=== PATIENT | male | born 1965 | race Caucasian/White ===

== ENCOUNTER → 2021-03-27 10:16 | Outpatient (CLI) | payer OTHER, MEDICAID, SELFPAY ==
[2021-03-27 11:50] LABS: Alanine Aminotransferase 20 IU/L (<50); Albumin 4.5 g/dL (3.5-5.0); Albumin Globulin Ratio 1.5 (1.0-2.8); Alkaline Phosphatase 56 U/L (38-126); Aspartate Aminotransferase 23 IU/L (17-59); BUN Creatinine Ratio 32.6 (6-22); Bilirubin Total 0.2 mg/dL (0.2-1.3); Blood Urea Nitrogen 14 mg/dL (9-20); Carbon Dioxide 27 mmol/L (22-32); Chloride 101 mmol/L (98-107); Cholesterol 282 mg/dL (140-199); Estimated Glomerular Filt Rate > 60.0 mL/min (>60); Glucose 246 mg/dL (70-100); HDL Cholesterol 39 mg/dL (40-60); HEMOLYSIS < 15 (0-50); Potassium 4.3 mmol/L (3.4-5.1); Sodium 137 mmol/L (137-145); Total Protein 7.5 g/dL (6.3-8.2); Triglycerides 462 mg/dL (35-150)
[2021-03-27 12:00] LABS: Hemoglobin A1C% w Est Avg Glu 8.3 % (4.0-6.0)
[2021-03-27 12:05] LABS: Vitamin D 25 Hydroxy (D3) 53.7 ng/mL (30.0-100.0)
[2021-03-27 12:18] LABS: Prostate Specific Antigen Scrn 1.16 ng/mL (0.1-4.0)
== END ==
PROVIDERS: PCP Student in an Organized Health Care Education/Training Program; Referring Provider Student in an Organized Health Care Education/Training Program; Visit Provider Student in an Organized Health Care Education/Training Program
DX: E11.9 Type 2 diabetes mellitus without complications (principal); E11.69 Type 2 diabetes mellitus with other specified complication; E78.5 Hyperlipidemia, unspecified; Z12.5 Encounter for screening for malignant neoplasm of prostate; E55.9 Vitamin D deficiency, unspecified
CPT/HCPCS: 36415; 80053; 80061; 82306; 83036; G0103

== ENCOUNTER → 2021-07-15 16:24 | Outpatient (CLI) | payer OTHER, MEDICAID, SELFPAY ==
[2021-07-15 17:48] LABS: Hemoglobin A1C% w Est Avg Glu 6.3 % (4.0-6.0)
[2021-07-15 17:58] LABS: Cholesterol 276 mg/dL (140-199); HDL Cholesterol 42 mg/dL (40-60); LDL Cholesterol Calculated 178 mg/dL (<100); Triglycerides 280 mg/dL (35-150)
== END ==
PROVIDERS: PCP Student in an Organized Health Care Education/Training Program; Referring Provider Student in an Organized Health Care Education/Training Program; Visit Provider Student in an Organized Health Care Education/Training Program
DX: E11.65 Type 2 diabetes mellitus with hyperglycemia (principal); E78.5 Hyperlipidemia, unspecified
CPT/HCPCS: 36415; 80061; 83036

== ENCOUNTER 2021-07-24 10:04 | Outpatient (RCR) | payer OTHER, MEDICAID, SELFPAY ==
--- NOTE | 2021-07-24 12:46 | PT.OIE ---
Current Diagnoses Muscle wasting and atrophy, not elsewhere classified, multiple sites (07/24/21) Muscle weakness (generalized) (07/24/21) Weakness (07/24/21) Past Medical History (Last Updated 03/30/21 @ 11:42 by Forrest Horne MD) ALS (amyotrophic lateral sclerosis) Asthma Chronic back pain Diabetes mellitus History of neck surgery Hyperlipidemia associated with type 2 diabetes mellitus Onychomycosis Peripheral neuropathy Past Surgical History (Last Updated 03/27/21 @ 22:01 by Freida Stanford) Anesthesia History of neck surgery Visit Care Team Role Provider Type Forrest Horne MD Family Provider Physician Primary Care Provider Specialty: Internal Medicine Address: [address] [place] [address], [address], [address] Email: [email or web address] Gisele Cruz MD Attending Provider Non-Staff Referring Provider Specialty: Neurology Address: [address] [place] [address], [id number] Email: Physical Therapy Initial Evaluation PT-OP-A Visit Information Start: 07/24/21 12:15 Freq: Status: Active Protocol: Document 07/24/21 10:30 HH (Rec: 07/24/21 12:44 HH [email or web address]) Out-Patient Physical Therapy Visit Information Visit Information Visit Type Initial Evaluation Visit Start Time 10:30 Visit Stop Time 11:15 Total Visit Minutes 45 Visit Number 1/9 Number of TAXATION INSPECTOR Visits 0 Evaluation Information Evaluation Date 07/24/21 Precautions Precautions ALS DMII avoid laying in supine d/t difficulty in breathing depression PT-OP-B Current Condition Start: 07/24/21 12:15 Freq: Status: Active Protocol: Document 07/24/21 10:30 HH (Rec: 07/24/21 12:44 HH [email or web address]) Current Condition History of Current Condition Onset Date since 2013 Current Complaints ALS, generalized pain, decreased strength and balance History of Current Condition Willam is a 55yo gentleman here with his CG to improve his overall strength and mobility secondary to his recent dx of ALS from last year. He stated symptoms started from distal part UEs since 2013 but was mis-diagnosed with carpal tunnel syndrome and neck related injury. He had cervical disc replacement before and carpel tunnel release. He also had a low back and ulnar relocation surgery. However, he has lost full function of his UEs now and only able to perform shoulder shrugs. He notices his feet is getting weak and less mobile now which affects his balance and gait. He has one CG (2 CGs take turn) x5 hrs per day to assist him for ADLs including bathing, feed, cooking, house cleaning, dressing. Pt mostly lay in bed around 22 hours a day and walks occasionally within the house. Current Functional Impairments (Reported) Functional Limitations- ADL's He has one CG (2 CGs take turn ) x5 hrs per day to assist him for ADLs including bathing, feed, cooking, house cleaning, dressing. Pt mostly lay in bed around 22 hours a day and walks occasionally within the house. Functional Limitations- Other pt sleeps in a reclined bed. He does have difficulty from supine to sit getting up from chair is also difficulty to him. Personal Factors Other Personal Factors That May Effect ALS Therapy/Recovery DMII depression PT-OP-C Subjective Start: 07/24/21 12:15 Freq: Status: Active Protocol: Document 07/24/21 10:30 HH (Rec: 07/24/21 12:44 [email or web address]) OP-PT Pain Assessment Location generalized pain Intensity 5 Scale Used Numeric (0 - 10) Description Chronic Other Pain Aggravating Factors persistent pain PT-OP-D Balance Start: 07/24/21 12:15 Freq: Status: Active Protocol: Document 07/24/21 10:30 HH (Rec: 07/24/21 12:44 [email or web address]) OP-PT Balance Assessment Sitting Balance Static Sitting Balance Ability Good Standing Balance Static Standing Balance Ability Fair Dynamic Standing Balance Ability Fair Madrid Fall Scale Copyright Permission PT-OP-E Functional Tests Start: 07/24/21 12:15 Freq: Status: Active Protocol: Document 07/24/21 10:30 HH (Rec: 07/24/21 12:46 [email or web address]) Functional Tests 30 Second Sit to Stand Test Score 4 Comments 21 inch firm surface, significant anterior trunk lean for rocking, Timed Up and Go (TUG) Score 22 Comments 2 trial, 21-23s, 1PA to stand up from 20 inch chair. TUG Impairment Rating 100% Impaired (Score 20) PT-OP-G Mobility & Gait Start: 07/24/21 12:15 Freq: Status: Active Protocol: Document 07/24/21 10:30 HH (Rec: 07/24/21 12:44 HH [email or web address]) OP Mobility Evaluation Bed Mobility Supine to and from Sit unable from full supine use of trunk rock and leg swing to get up from inclined position Transfers Sit to Stand lack of ankle DF to allow anterior translation of knees use of anterior trunk lean to gain momentum able to get up from chair >21 inches firm surface OP Gait Assessment Comments Gait Comments heel walker and high steppage gait. no reciprocal armswings. Stair Climbing Evaluation Comments Stair Climbing Comments pt has a ramp at home PT-OP-H Neuro Start: 07/24/21 12:15 Freq: Status: Active Protocol: Document 07/24/21 10:30 HH (Rec: 07/24/21 12:44 HH [email or web address]) Sensation Evaluation Gross Sensation Gross Sensation WNL Comments Summary Comments peripheral neuropathy on feet bilaterally PT-OP-K Range of Motion Start: 07/24/21 12:15 Freq: Status: Active Protocol: Document 07/24/21 10:30 HH (Rec: 07/24/21 12:44 HH [email or web address]) Cervical Spine Range of Motion Cervical Spine Active Degrees Testing Position Sitting Flexion 22 Extension 18 Rotation Left 30 Rotation Right 33 Hip Goniometric Range of Motion Hip Right Active Hip ROM WFL Yes Left Active Hip ROM WFL Yes Knee Goniometric Range of Motion Knee Left Knee ROM WFL Yes Right Knee ROM WFL Yes Ankle and Foot Goniometric Range of Motion Ankle and Foot Left Active Ankle/Foot ROM WFL No Testing Position Supine Comments resting position =15 degrees PF, active DF = 13 degrees in pf Right Active Ankle/Foot ROM WFL No Testing Position Supine Comments resting position =18 degrees PF, active DF = 15 degrees in pf PT-OP-M Strength Start: 07/24/21 12:15 Freq: Status: Active Protocol: Document 07/24/21 10:30 HH (Rec: 07/24/21 12:44 HH [email or web address]) Trunk Strength Trunk Manual Muscle Testing Testing Position Sitting Flexion 4- Good- Shoulder Strength Shoulder Manual Muscle Testing Right Flexion 0 Zero Extension 0 Zero Abduction (C5) 1 Trace Adduction 0 Zero Comments shoulder elevation 4+/5 Left Flexion 0 Zero Extension 0 Zero Abduction (C5) 0 Zero Adduction 0 Zero Comments shoulder elevation 4+/5 Elbow/Forearm Strength Elbow and Forearm Manual Muscle Testing Right Flexion (C6) 2- Poor- Extension (C7) 0 Zero Pronation 0 Zero Supination 0 Zero Left Flexion (C6) 0 Zero Extension (C7) 0 Zero Pronation 0 Zero Supination 0 Zero Wrist Strength Wrist Manual Muscle Testing Right Flexion (C7) 0 Zero Extension (C6) 0 Zero Ulnar Deviation 0 Zero Radial Deviation 0 Zero Left Flexion (C7) 0 Zero Extension (C6) 0 Zero Ulnar Deviation 0 Zero Radial Deviation 0 Zero Hip Strength Hip Manual Muscle Testing Right Flexion (L2) 3+ Fair+ Extension (S1) 3+ Fair+ Abduction 3+ Fair+ Adduction 3+ Fair+ Left Flexion (L2) 4- Good- Extension (S1) 4- Good- Abduction 4- Good- Adduction 4- Good- Knee Strength Knee Manual Muscle Testing Right Flexion (S2) 3+ Fair+ Extension (L3) 3+ Fair+ Left Flexion (S2) 4- Good- Extension (L3) 4- Good- Ankle/Foot Strength Ankle and Foot Manual Muscle Testing Right Dorsiflexion (L4) 3- Fair- Plantarflexion (S1) 3+ Fair+ Left Dorsiflexion (L4) 3 Fair Plantarflexion (S1) 3+ Fair+ PT-OP-Q Treatments Start: 07/24/21 12:15 Freq: Status: Active Protocol: Document 07/24/21 10:30 (Rec: 07/24/21 12:44 [email or web address]) Therapeutic Exercises Supine Exercises calf stretch Supine Exercise Name have CG to perform for PT Side bilateral Reps/Minutes 20s x 5 Comments for HEP PT-OP-T Assessment and Plan Start: 07/24/21 12:15 Freq: Status: Active Protocol: Document 07/24/21 10:30 HH (Rec: 07/24/21 12:44 [email or web address]) Physical Therapy Assessment Rehab Potential Rehabilitation Potential Fair Evaluation Complexity Number of Personal Factors/Comorbidities 3 or More Number of Body Systems Impaired 4 or More Clinical Presentation at Evaluation Stable Impairments Impairments Activity Tolerance,Balance, Functional Activities, Functional Mobility,Gait,Pain, Posture,ROM,Soft Tissue Mobility,Strength,Tone, Transfers Goals TUG Impairment TUG= 22s from 20 inch chair Short Term Goal (STG) pt will show improved LE strength and endurance to be able to complete TUG <20 s safely without assistance STG Duration 5 weeks Straightedge Machine Operator Helper Goal (LTG) pt will show improved LE strength and endurance to be able to complete TUG <18 s safely without assistance LTG Duration 10 weeks STS Impairment pt is very deconditioned and lack of strength Short Term Goal (STG) pt will show improve LE strength to complete 5 STS from 21 inch table with decreased anterior trunk lean STG Duration 5 weeks Straightedge Machine Operator Helper Goal (LTG) pt will show improve LE strength to complete 6 STS from 21 inch table with decreased anterior trunk lean, therefore, he can stand up from regular chair. LTG Duration 10 weeks ROM Impairment lack of ankle ROM Short Term Goal (STG) pt will show improved PROM of ankle DF to 12 degrees bilateraly STG Duration 5 weeks Straightedge Machine Operator Helper Goal (LTG) pt will show improved PROM of ankle DF to 10 degrees bilateraly to improve ability to get up from chair LTG Duration 10 weeks Assessment Summary Assessment Willam is a 55 yo gentleman here to improve his mobility and strength d/t his ALS. Upon assessment, he loss complete function for both UE with ( significant muscle atrophy). He has very limited strength and ankle DF bilaterally but WFL for both knees and hips. His 30s STS= 4 times and TUG= 22s which are way below average. His gait = heel walker d/t foot drop which affect his balance (in addition to ALS and DM II). I believe pt can benefit from skilled PT to improve his ankle flexiblity which allows him to have better anterior translation during sit to stand, and overall core strength/ LE strength to improve his bed mobility and gait. In the mean time, providing patient education on energy conservation techniques is also important for him to avoid exacerbating his symptoms/ progression. Physical Therapy Plan Frequency and Duration Frequency of Treatment 2x/Week Duration of Treatment 10 weeks Plan of Care Start Date 07/24/21 Plan of Care End Date 10/07/21 Therapeutic Interventions Therapeutic Interventions Balance Training,Gait Training Next Visit Focus/Plan Next Note Type Treatment Note Next Visit Plan AVOID laying in supine d/t difficulty in supine calf stretch biking as tolerated core stability ex, ball leg curl, seated rotation resisted trunk flexion, extension
--- NOTE | 2021-07-24 12:46 | PT.OPPOC ---
Physical, Occupational & Speech Therapy At [facility] Current Diagnoses Muscle wasting and atrophy, not elsewhere classified, multiple sites (07/24/21) Muscle weakness (generalized) (07/24/21) Weakness (07/24/21) Visit Care Team Role Provider Type Forrest Horne MD Family Provider Physician Primary Care Provider Specialty: Internal Medicine Address: [address] [place] [address], [facility] [place] [address], [place], [address] Email: [email or web address] Gisele Cruz MD Attending Provider Non-Staff Referring Provider Specialty: Neurology Address: [address] [place] [address], [id number] Email: Plan Of Care PT-OP-T Assessment and Plan Start: 07/24/21 12:15 Freq: Status: Active Protocol: Document 07/24/21 10:30 (Rec: 07/24/21 12:44 [email or web address]) Physical Therapy Assessment Rehab Potential Rehabilitation Potential Fair Evaluation Complexity Number of Personal Factors/Comorbidities 3 or More Number of Body Systems Impaired 4 or More Clinical Presentation at Evaluation Stable Impairments Impairments Activity Tolerance,Balance, Functional Activities, Functional Mobility,Gait,Pain, Posture,ROM,Soft Tissue Mobility,Strength,Tone, Transfers Goals TUG Impairment TUG= 22s from 20 inch chair Short Term Goal (STG) pt will show improved LE strength and endurance to be able to complete TUG <20 s safely without assistance STG Duration 5 weeks Family Support Specialist Goal (LTG) pt will show improved LE strength and endurance to be able to complete TUG <18 s safely without assistance LTG Duration 10 weeks STS Impairment pt is very deconditioned and lack of strength Short Term Goal (STG) pt will show improve LE strength to complete 5 STS from 21 inch table with decreased anterior trunk lean STG Duration 5 weeks Family Support Specialist Goal (LTG) pt will show improve LE strength to complete 6 STS from 21 inch table with decreased anterior trunk lean, therefore, he can stand up from regular chair. LTG Duration 10 weeks ROM Impairment lack of ankle ROM Short Term Goal (STG) pt will show improved PROM of ankle DF to 12 degrees bilateraly STG Duration 5 weeks Family Support Specialist Goal (LTG) pt will show improved PROM of ankle DF to 10 degrees bilateraly to improve ability to get up from chair LTG Duration 10 weeks Assessment Summary Assessment Willam is a 55 yo gentleman here to improve his mobility and strength d/t his ALS. Upon assessment, he loss complete function for both UE with ( significant muscle atrophy). He has very limited strength and ankle DF bilaterally but WFL for both knees and hips. His 30s STS= 4 times and TUG= 22s which are way below average. His gait = heel walker d/t foot drop which affect his balance (in addition to ALS and DM II). I believe pt can benefit from skilled PT to improve his ankle flexiblity which allows him to have better anterior translation during sit to stand, and overall core strength/ LE strength to improve his bed mobility and gait. In the mean time, providing patient education on energy conservation techniques is also important for him to avoid exacerbating his symptoms/ progression. Physical Therapy Plan Frequency and Duration Frequency of Treatment 2x/Week Duration of Treatment 10 weeks Plan of Care Start Date 07/24/21 Plan of Care End Date 10/07/21 Therapeutic Interventions Therapeutic Interventions Balance Training,Gait Training Next Visit Focus/Plan Next Note Type Treatment Note Next Visit Plan AVOID laying in supine d/t difficulty in supine calf stretch biking as tolerated core stability ex, ball leg curl, seated rotation resisted trunk flexion, extension Plan of Care Dates Plan of Care Start Date 07/24/21 Plan of Care End Date 10/07/21 Electronically Signed by: Carolina Phillips PT 07/24/21 0583 Please Sign and Return: I have reviewed this Plan of Care and certify that the skilled therapy services above are required to meet the patient?s needs. Physician Signature Date Printed Name and Credentials Clinical Instructor Signature Printed Name and Credentials
--- NOTE | 2021-07-29 13:17 | PT-OP ANOTE ---
Pt called to cancel appts due to mother having stroke. Per conversation with Misbah Garrett, pt will call back at end of Jul to decide on status of his PT rehab.
--- NOTE | 2021-10-18 14:44 | PT.OPDS ---
Current Diagnoses Muscle wasting and atrophy, not elsewhere classified, multiple sites (07/24/21) Muscle weakness (generalized) (07/24/21) Weakness (07/24/21) Visit Care Team Role Provider Type Forrest Horne MD Family Provider Physician Primary Care Provider Specialty: Internal Medicine Address: [address] [place] [address], [address], [address] Email: [email or web address] Gisele Cruz MD Attending Provider Non-Staff Referring Provider Specialty: Neurology Address: [address] [place] [address], [address] Email: Visit Number Visit Number 09/01 Discharge Summary PT-OP-B Current Condition Start: 07/24/21 12:15 Freq: Status: Active Protocol: Document 07/24/21 10:30 HH (Rec: 07/24/21 12:44 HH [email or web address]) Current Condition History of Current Condition Onset Date since 2013 Current Complaints ALS, generalized pain, decreased strength and balance History of Current Condition Willam is a 55yo gentleman here with his CG to improve his overall strength and mobility secondary to his recent dx of ALS from last year. He stated symptoms started from distal part UEs since 2013 but was mis-diagnosed with carpal tunnel syndrome and neck related injury. He had cervical disc replacement before and carpel tunnel release. He also had a low back and ulnar relocation surgery. However, he has lost full function of his UEs now and only able to perform shoulder shrugs. He notices his feet is getting weak and less mobile now which affects his balance and gait. He has one CG (2 CGs take turn) x5 hrs per day to assist him for ADLs including bathing, feed, cooking, house cleaning, dressing. Pt mostly lay in bed around 22 hours a day and walks occasionally within the house. Current Functional Impairments (Reported) Functional Limitations- ADL's He has one CG (2 CGs take turn ) x5 hrs per day to assist him for ADLs including bathing, feed, cooking, house cleaning, dressing. Pt mostly lay in bed around 22 hours a day and walks occasionally within the house. Functional Limitations- Other pt sleeps in a reclined bed. He does have difficulty from supine to sit getting up from chair is also difficulty to him. Personal Factors Other Personal Factors That May Effect ALS Therapy/Recovery DMII depression PT-OP-C Subjective Start: 07/24/21 12:15 Freq: Status: Active Protocol: Document 07/24/21 10:30 HH (Rec: 07/24/21 12:44 [email or web address]) OP-PT Pain Assessment Location generalized pain Intensity 5 Scale Used Numeric (0 - 10) Description Chronic Other Pain Aggravating Factors persistent pain PT-OP-D Balance Start: 07/24/21 12:15 Freq: Status: Active Protocol: Document 07/24/21 10:30 HH (Rec: 07/24/21 12:44 [email or web address]) OP-PT Balance Assessment Sitting Balance Static Sitting Balance Ability Good Standing Balance Static Standing Balance Ability Fair Dynamic Standing Balance Ability Fair Madrid Fall Scale Copyright Permission PT-OP-E Functional Tests Start: 07/24/21 12:15 Freq: Status: Active Protocol: Document 07/24/21 10:30 HH (Rec: 07/24/21 12:46 HH [email or web address]) Functional Tests 30 Second Sit to Stand Test Score 4 Comments 21 inch firm surface, significant anterior trunk lean for rocking, Timed Up and Go (TUG) Score 22 Comments 2 trial, 21-23s, 1PA to stand up from 20 inch chair. TUG Impairment Rating 100% Impaired (Score 20) PT-OP-G Mobility & Gait Start: 07/24/21 12:15 Freq: Status: Active Protocol: Document 07/24/21 10:30 HH (Rec: 07/24/21 12:44 [email or web address]) OP Mobility Evaluation Bed Mobility Supine to and from Sit unable from full supine use of trunk rock and leg swing to get up from inclined position Transfers Sit to Stand lack of ankle DF to allow anterior translation of knees use of anterior trunk lean to gain momentum able to get up from chair >21 inches firm surface OP Gait Assessment Comments Gait Comments heel walker and high steppage gait. no reciprocal armswings. Stair Climbing Evaluation Comments Stair Climbing Comments pt has a ramp at home PT-OP-H Neuro Start: 07/24/21 12:15 Freq: Status: Active Protocol: Document 07/24/21 10:30 HH (Rec: 07/24/21 12:44 [email or web address]) Sensation Evaluation Gross Sensation Gross Sensation WNL Comments Summary Comments peripheral neuropathy on feet bilaterally PT-OP-K Range of Motion Start: 07/24/21 12:15 Freq: Status: Active Protocol: Document 07/24/21 10:30 HH (Rec: 07/24/21 12:44 HH [email or web address]) Cervical Spine Range of Motion Cervical Spine Active Degrees Testing Position Sitting Flexion 22 Extension 18 Rotation Left 30 Rotation Right 33 Hip Goniometric Range of Motion Hip Right Active Hip ROM WFL Yes Left Active Hip ROM WFL Yes Knee Goniometric Range of Motion Knee Left Knee ROM WFL Yes Right Knee ROM WFL Yes Ankle and Foot Goniometric Range of Motion Ankle and Foot Left Active Ankle/Foot ROM WFL No Testing Position Supine Comments resting position =15 degrees PF, active DF = 13 degrees in pf Right Active Ankle/Foot ROM WFL No Testing Position Supine Comments resting position =18 degrees PF, active DF = 15 degrees in pf PT-OP-M Strength Start: 07/24/21 12:15 Freq: Status: Active Protocol: Document 07/24/21 10:30 HH (Rec: 07/24/21 12:44 [email or web address]) Trunk Strength Trunk Manual Muscle Testing Testing Position Sitting Flexion 4- Good- Shoulder Strength Shoulder Manual Muscle Testing Right Flexion 0 Zero Extension 0 Zero Abduction (C5) 1 Trace Adduction 0 Zero Comments shoulder elevation 4+/5 Left Flexion 0 Zero Extension 0 Zero Abduction (C5) 0 Zero Adduction 0 Zero Comments shoulder elevation 4+/5 Elbow/Forearm Strength Elbow and Forearm Manual Muscle Testing Right Flexion (C6) 2- Poor- Extension (C7) 0 Zero Pronation 0 Zero Supination 0 Zero Left Flexion (C6) 0 Zero Extension (C7) 0 Zero Pronation 0 Zero Supination 0 Zero Wrist Strength Wrist Manual Muscle Testing Right Flexion (C7) 0 Zero Extension (C6) 0 Zero Ulnar Deviation 0 Zero Radial Deviation 0 Zero Left Flexion (C7) 0 Zero Extension (C6) 0 Zero Ulnar Deviation 0 Zero Radial Deviation 0 Zero Hip Strength Hip Manual Muscle Testing Right Flexion (L2) 3+ Fair+ Extension (S1) 3+ Fair+ Abduction 3+ Fair+ Adduction 3+ Fair+ Left Flexion (L2) 4- Good- Extension (S1) 4- Good- Abduction 4- Good- Adduction 4- Good- Knee Strength Knee Manual Muscle Testing Right Flexion (S2) 3+ Fair+ Extension (L3) 3+ Fair+ Left Flexion (S2) 4- Good- Extension (L3) 4- Good- Ankle/Foot Strength Ankle and Foot Manual Muscle Testing Right Dorsiflexion (L4) 3- Fair- Plantarflexion (S1) 3+ Fair+ Left Dorsiflexion (L4) 3 Fair Plantarflexion (S1) 3+ Fair+ PT-OP-T Assessment and Plan Start: 07/24/21 12:15 Freq: Status: Active Protocol: Document 10/18/21 14:37 LRN (Rec: 10/18/21 14:44 LRN [id number]) Physical Therapy Assessment Goals TUG Impairment TUG= 22s from 20 inch chair Short Term Goal (STG) pt will show improved LE strength and endurance to be able to complete TUG <20 s safely without assistance STG Duration 5 weeks Family Support Coordinator Goal (LTG) pt will show improved LE strength and endurance to be able to complete TUG <18 s safely without assistance LTG Duration 10 weeks STS Impairment pt is very deconditioned and lack of strength Short Term Goal (STG) pt will show improve LE strength to complete 5 STS from 21 inch table with decreased anterior trunk lean STG Duration 5 weeks (NOT MET GOAL, program not completed) Residential Goal (LTG) pt will show improve LE strength to complete 6 STS from 21 inch table with decreased anterior trunk lean, therefore, he can stand up from regular chair. LTG Duration 10 weeks (NOT MET GOAL, program not completed) ROM Impairment lack of ankle ROM Short Term Goal (STG) pt will show improved PROM of ankle DF to 12 degrees bilateraly STG Duration 5 weeks (NOT MET GOAL, program not completed) Family Support Coordinator Goal (LTG) pt will show improved PROM of ankle DF to 10 degrees bilateraly to improve ability to get up from chair LTG Duration 10 weeks (NOT MET GOAL, program not completed) Assessment Summary Assessment Pt was last seen for his initial evaluation on 07/24/21. Pt called to cancel all his appointments due to personal reasons and left a message that he would call to reschedule when he is able. The pt has not called back and his plan of care has ; therefore the pt is being discharged from physical therapy due to lack of attendance. The pt was unavailable for final assessment, but because he failed to return to therapy for treatment, goals were not met. Pt will need a new referral to return to therapy. Physical Therapy Plan Discharge Physical Therapy Discharge Reasons No Longer Attending PT Discharge Comments Thank you for your referral.
== END 2021-10-21 09:39 ==
LOC: PHYS 10:04
PROVIDERS: Family Provider Student in an Organized Health Care Education/Training Program; PCP Student in an Organized Health Care Education/Training Program; Referring Provider Psychiatry & Neurology Neurology; Visit Provider Psychiatry & Neurology Neurology
DX: M62.59 Muscle wasting and atrophy, not elsewhere classified, multiple sites (principal); M62.81 Muscle weakness (generalized)
CPT/HCPCS: 97163

== ENCOUNTER → 2022-04-16 09:26 | Outpatient (CLI) | payer OTHER, MEDICAID, SELFPAY ==
[2022-04-16 10:37] LABS: Hemoglobin A1C% w Est Avg Glu 6.1 % (4.0-6.0)
[2022-04-16 10:47] LABS: Alanine Aminotransferase 12 IU/L (<50); Albumin 4.6 g/dL (3.5-5.0); Albumin Globulin Ratio 1.6 (1.0-2.8); Alkaline Phosphatase 52 U/L (38-126); Aspartate Aminotransferase 19 IU/L (17-59); BUN Creatinine Ratio 35.9 (6-22); Bilirubin Total 0.5 mg/dL (0.2-1.3); Blood Urea Nitrogen 14 mg/dL (9-20); Calcium 9.9 mg/dL (8.4-10.2); Carbon Dioxide 31 mmol/L (22-32); Chloride 95 mmol/L (98-107); Cholesterol 253 mg/dL (140-199); Estimated Glomerular Filt Rate > 60 mL/min (>60); Globulin 2.8 g/dL (1.7-4.1); Glucose 116 mg/dL (70-100); HDL Cholesterol 47 mg/dL (40-60); HEMOLYSIS < 15 (0-50); LDL Cholesterol Calculated 178 mg/dL (<100); Potassium 4.7 mmol/L (3.4-5.1); Sodium 136 mmol/L (137-145); Total Protein 7.4 g/dL (6.3-8.2); Triglycerides 138 mg/dL (35-150)
== END ==
PROVIDERS: Family Provider Student in an Organized Health Care Education/Training Program; PCP Student in an Organized Health Care Education/Training Program; Referring Provider Student in an Organized Health Care Education/Training Program; Visit Provider Student in an Organized Health Care Education/Training Program
DX: E11.65 Type 2 diabetes mellitus with hyperglycemia (principal); E11.69 Type 2 diabetes mellitus with other specified complication; E78.5 Hyperlipidemia, unspecified; F16.10 Hallucinogen abuse, uncomplicated; I10 Essential (primary) hypertension
CPT/HCPCS: 36415; 80053; 80061; 83036

== ENCOUNTER 2022-05-09 13:59 | Emergency (ER) | payer OTHER, MEDICAID, SELFPAY ==
[2022-05-09] VITALS (23 sets, daily range): BP systolic 85–184; BP diastolic 54–112; PULSE 0–133; RESP 0–58; TEMP 37.2; O2SAT 82–98; BMI 23.6
--- NOTE | 2022-05-09 14:08 | ED_ITS ---
HPI - General Adult <Aung Waldrop DO - Last Filed: 05/10/22 07:04> General Chief complaint: Shortness of Breath/Dyspnea Stated complaint: ALS Time Seen by Provider: 05/09/22 14:03 Source: patient Mode of arrival: EMS History of Present Illness HPI narrative: 48-year-old male. History of ALS. Is a DNR/DNI. Arrived by EMS for evaluation of shortness of breath. He is here with family. There is a plan for the patient to be involved with hospice however hospice can not come out to evaluate the patient until least the beginning of next week or longer. EMS was called out this morning secondary to shortness of breath. Has been going on for approximately the past 12 hours. He does not have oxygen at home. They provided some treatments this morning and the patient improved. Initially decided not to come to the emergency department. EMS was called back out for evaluation and the 2nd time decided to transport for further evaluation. Patient made it clear that he was okay with treatments to include x-rays and blood and nebulizers but did not want intubation or chest compressions. Patient states that he feels somewhat better now than what he did earlier today. He is not been able to sleep the past couple nights because of the shortness of breath. Related Data Home Medications Medication Instructions Recorded Confirmed magnesium citrate 300 ml PO DAILY PRN 03/17/22 03/17/22 sennosides 8.6 mg-docusate sodium 1 tab-cap PO BEDTIME 03/17/22 03/17/22 50 mg tablet (Senna with Docusate Sodium) Previous Rx's Medication Instructions Recorded ketoconazole 2 % topical cream 1 applic topical DAILY #30 grams 05/29/21 desonide 0.05 % topical cream 1 applic topical BID RASH #60 grams 09/19/21 atorvastatin 40 mg tablet 40 mg PO DAILY #90 tabs 11/13/21 Nebulizer #1 ea 12/11/21 albuterol sulfate 1.25 mg/3 mL 1.25 mg (3 mL) inhalation Q4-6H 12/11/21 solution for nebulization PRN shortness of breath or wheezing #90 mL lisinopril 20 mg tablet 20 mg PO QDAY #90 tabs 01/31/22 metformin 1,000 mg tablet 1,000 mg PO BIDCC #90 tabs 01/31/22 hydrocodone 10 mg-acetaminophen 0.5 tab PO Q6-8H PRN pain #60 tabs 04/12/22 325 mg tablet albuterol sulfate 90 mcg/actuation 2 puff inhalation Q4H PRN 05/07/22 aerosol inhaler shortness of breath or wheezing #8.5 grams Allergies Allergy/AdvReac Type Severity Reaction Status Date / Time baclofen Allergy Mild Verified 05/09/22 14:13 hydromorphone [From Dilaudid] AdvReac Severe Nausea/vomi Verified 05/09/22 14:13 ting Review of Systems <Aung Waldrop DO - Last Filed: 05/10/22 07:04> Review of Systems ROS Unobtainable: All systems reviewed & are unremarkable except as noted in HPI and below Patient History <Aung Waldrop DO - Last Filed: 05/10/22 07:04> Medical History ALS (amyotrophic lateral sclerosis) Asthma Chronic back pain Diabetes mellitus Hyperlipidemia associated with type 2 diabetes mellitus Onychomycosis Peripheral neuropathy Surgical History (Updated 03/27/21 @ 22:01 by Freida Stanford) Anesthesia History of neck surgery Family History (Updated 03/27/21 @ 22:02 by Freida Stanford) Father Diabetes mellitus Mother History of heart disease Hypertension Social History household members: friend(s) Smoking Status: Never smoker Smoking Status: Never smoker Exam <Aung Waldrop DO - Last Filed: 05/10/22 07:04> Initial Vital Signs Initial Vital Signs: Vital Signs Temperature 98.9 F 05/09/22 14:07 Pulse Rate 132 H 05/09/22 14:07 Respiratory Rate 26 H 05/09/22 14:07 Blood Pressure 184/112 H 05/09/22 14:07 Pulse Oximetry 98 05/09/22 14:07 Oxygen Delivery Method 05/09/22 14:07 Oxygen Flow Rate 2 05/09/22 14:07 Const General: cooperative and frail appearing HENMT Head: normal to inspection and normocephalic Resp Effort & Inspection: normal respiratory effort Auscultation: clear to auscultation bilaterally Cardio Rate: tachycardic Rhythm: regular rhythm GI Inspection: normal to inspection Skin General: no rashes or lesions noted Neuro General: patient alert, patient awake and moves all extremities Extrem General: No edema Psych Appearance: grossly normal <Isabel Landers MD - Last Filed: 05/10/22 04:09> Initial Vital Signs Initial Vital Signs: Vital Signs Temperature 98.9 F 05/09/22 14:07 Pulse Rate 132 H 05/09/22 14:07 Respiratory Rate 26 H 05/09/22 14:07 Blood Pressure 184/112 H 05/09/22 14:07 Pulse Oximetry 98 05/09/22 14:07 Oxygen Delivery Method 05/09/22 14:07 Oxygen Flow Rate 2 05/09/22 14:07 Course <Aung Waldrop DO - Last Filed: 05/10/22 07:04> Orders Ordered: ED Orders 05/09/22 23:10 Consult to [facility] [place] Surgical Services Tech Stat Discontinued Medications Albuterol/Ipratropium (Albuterol/Ipratropium 3 Ml Ampul) 3 ml INH NOW ONE Stop: 05/09/22 14:10 Last Admin: 05/09/22 14:21 Dose: 3 ml Documented By: SAT Sodium Chloride (Normal Saline 0.9%) 1,000 mls @ 100 mls/hr IV CONT MARIJA Last Infusion: 05/09/22 23:38 Dose: 0 mls/hr Documented By: Infusion: 05/09/22 23:03 Dose: 0 mls/hr Documented By: Admin: 05/09/22 15:13 Dose: 100 mls/hr Documented By: RB Morphine Sulfate 50 mg/ (Dextrose) 50 mls @ 2 mls/hr IV TITRATE MARIJA; Protocol Last Titration: 05/09/22 23:38 Dose: 0 mg/hr, 0 mls/hr Documented By: Titration: 05/09/22 23:03 Dose: 0 mg/hr, 0 mls/hr Documented By: Admin: 05/09/22 22:25 Dose: 2 mg/hr, 2 mls/hr Documented By: EB Morphine Sulfate (Morphine 4 Mg/Ml Inj) 2 mg IM NOW ONE Stop: 05/09/22 16:03 Last Admin: 05/09/22 16:40 Dose: 2 mg Documented By: RB Morphine Sulfate (Morphine 2 Mg/Ml Inj) 2 mg IV NOW ONE Stop: 05/09/22 21:47 Last Admin: 05/09/22 21:55 Dose: 2 mg Documented By: EB Vital Signs Vital signs: Vital Signs - 8 hr 05/09/22 23:03 05/09/22 20:30 05/09/22 21:00 Pulse Rate 0 L 84 83 Respiratory Rate 0 L 05/09/22 21:30 05/09/22 22:00 05/09/22 22:30 Pulse Rate 80 80 83 Respiratory Rate 05/09/22 23:00 Pulse Rate 23 L Respiratory Rate <Isabel Landers MD - Last Filed: 05/10/22 04:09> Orders Ordered: ED Orders 05/09/22 23:10 Consult to [facility] - Surgical Services Tech Stat Discontinued Medications Albuterol/Ipratropium (Albuterol/Ipratropium 3 Ml Ampul) 3 ml INH NOW ONE Stop: 05/09/22 14:10 Last Admin: 05/09/22 14:21 Dose: 3 ml Documented By: SAT Sodium Chloride (Normal Saline 0.9%) 1,000 mls @ 100 mls/hr IV CONT MARIJA Last Infusion: 05/09/22 23:38 Dose: 0 mls/hr Documented By: Infusion: 05/09/22 23:03 Dose: 0 mls/hr Documented By: Admin: 05/09/22 15:13 Dose: 100 mls/hr Documented By: RB Morphine Sulfate 50 mg/ (Dextrose) 50 mls @ 2 mls/hr IV TITRATE MARIJA; Protocol Last Titration: 05/09/22 23:38 Dose: 0 mg/hr, 0 mls/hr Documented By: Titration: 05/09/22 23:03 Dose: 0 mg/hr, 0 mls/hr Documented By: Admin: 05/09/22 22:25 Dose: 2 mg/hr, 2 mls/hr Documented By: EB Morphine Sulfate (Morphine 4 Mg/Ml Inj) 2 mg IM NOW ONE Stop: 05/09/22 16:03 Last Admin: 05/09/22 16:40 Dose: 2 mg Documented By: RB Morphine Sulfate (Morphine 2 Mg/Ml Inj) 2 mg IV NOW ONE Stop: 05/09/22 21:47 Last Admin: 05/09/22 21:55 Dose: 2 mg Documented By: EB Vital Signs Vital signs: Vital Signs - 8 hr 05/09/22 23:03 05/09/22 20:30 05/09/22 21:00 Pulse Rate 0 L 84 83 Respiratory Rate 0 L 05/09/22 21:30 05/09/22 22:00 05/09/22 22:30 Pulse Rate 80 80 83 Respiratory Rate 05/09/22 23:00 Pulse Rate 23 L Respiratory Rate Medical Decision Making <Aung Waldrop DO - Last Filed: 05/10/22 07:04> Lab Data Lab results reviewed: Yes I reviewed the patient's lab results. Result diagrams: 05/09/22 14:30 05/09/22 15:20 Labs: Lab Results 05/09/22 05/09/22 05/09/22 Range/Units 14:05 14:30 14:30 WBC 14.4 H (4.5-11.0) X10^3/uL RBC 6.14 H (4.5-5.9) X10^6/uL Hgb 17.0 (13.5-17.5) g/dL Hct 49.9 (41-53) % MCV 81.3 (80-100) fL MCH 27.6 (26-34) PG MCHC 33.9 (30-36) % RDW 13.6 (11.6-14.8) % Plt Count 285 (150-400) X10^3/uL Neut % (Auto) 91.3 H (50-75) % Lymph % (Auto) 5.3 L (25-40) % Overton % (Auto) 3.1 (3-14) % Eos % (Auto) 0.0 L (2-4) % Baso % (Auto) 0.3 (0-2) % Neut # (Auto) 36093 H (1420-5925) /uL Lymph # (Auto) 800 L (0904-2464) /uL Overton # (Auto) 400 (0-900) /uL Eos # (Auto) 0 (0-450) /uL Baso # (Auto) 0 (0-100) /uL Sodium (137-145) mmol/L Potassium (3.4-5.1) mmol/L Chloride (98-107) mmol/L Carbon Dioxide (22-32) mmol/L BUN (9-20) mg/dL Creatinine (0.66-1.25) mg/dL Estimated GFR (>60) mL/min BUN/Creatinine Ratio (6-22) Glucose (70-100) mg/dL Lactate 1.8 (0.7-2.1) mmol/L Calcium (8.4-10.2) mg/dL Total Creatine Kinase (55-170) U/L CK-MB (CK-2) CK-MB (CK-2) Rel Index Troponin I (0.01-0.034) ng/mL NT-Pro-B Natriuret Pep (<125) pg/mL Procalcitonin (<0.5) ng/mL SARS-CoV-2 (PCR) Negative (Negative) 05/09/22 05/09/22 Range/Units 15:20 15:20 WBC (4.5-11.0) X10^3/uL RBC (4.5-5.9) X10^6/uL Hgb (13.5-17.5) g/dL Hct (41-53) % MCV (80-100) fL MCH (26-34) PG MCHC (30-36) % RDW (11.6-14.8) % Plt Count (150-400) X10^3/uL Neut % (Auto) (50-75) % Lymph % (Auto) (25-40) % Overton % (Auto) (3-14) % Eos % (Auto) (2-4) % Baso % (Auto) (0-2) % Neut # (Auto) (2180-8523) /uL Lymph # (Auto) (6799-1299) /uL Overton # (Auto) (0-900) /uL Eos # (Auto) (0-450) /uL Baso # (Auto) (0-100) /uL Sodium 129 L (137-145) mmol/L Potassium 3.7 (3.4-5.1) mmol/L Chloride 80 L (98-107) mmol/L Carbon Dioxide 35 H (22-32) mmol/L BUN 18 (9-20) mg/dL Creatinine 0.29 L (0.66-1.25) mg/dL Estimated GFR > 60 (>60) mL/min BUN/Creatinine Ratio 62.1 H (6-22) Glucose 289 H (70-100) mg/dL Lactate (0.7-2.1) mmol/L Calcium 9.6 (8.4-10.2) mg/dL Total Creatine Kinase 70 (55-170) U/L CK-MB (CK-2) TNP CK-MB (CK-2) Rel Index TNP Troponin I 0.022 (0.01-0.034) ng/mL NT-Pro-B Natriuret Pep 514 H (<125) pg/mL Procalcitonin 0.07 (<0.5) ng/mL SARS-CoV-2 (PCR) (Negative) Imaging Data Chest x-ray: Radiologist's Impression: [address] [address] XRay Report Signed Patient: Willam Barkley MR#: [id number] : 1965 Acct:[id number] Age/Sex: 56 / M Date of Service: 05/09/22 Loc: ED Accession Number: [id number] ?? Procedure: XR chest 1V Ordering Provider: Aung Waldrop D.O. PROCEDURE:? XR CHEST 1V ? INDICATIONS:? Short of breath ? TECHNIQUE:? One view of the chest was acquired.? ? COMPARISON:? [facility], , CHEST 1 VIEW, 02/03/2013, 0:28. ? FINDINGS:? ? Surgical changes and devices:? Lower cervical spine fixation hardware is partially seen. ? Lungs and pleura:? On this semiupright portable chest examination, no large pneumothorax or large pleural effusions are seen.? No focal infiltrates are seen.? Low lung volumes are noted. This causes a crowded appearance to the lung markings and limits evaluation.? ? Mediastinum:? Mediastinal contours appear normal.? Heart size is normal.? ? Bones and chest wall:? No suspicious bony lesions.? Age-appropriate bony degenerative changes are seen.? Overlying soft tissues appear unremarkable.? ? ? IMPRESSION:? ? Limited portable chest examination, without a significant cardiopulmonary abnormality identified.? ? Postoperative and degenerative changes are seen.? ? ? Dictated by: Chandra Ackerman M.D. on 05/09/2022 at 14:12 ? ? Approved by: Chandra Ackerman M.D. on 05/09/2022 at 14:12? ECG Data Attestation: I personally reviewed and interpreted this ECG as follows: Interpretation: Sinus tachycardia Ventricular rate 138 Normal axis LVH Normal QRS MDM Narrative Medical decision making narrative: Initially patient was responsive. He was able to shake his head yes or no but was unable to talk. At baseline he is unable to move his extremities. No e asily reversible cause for his shortness of breath was found on the exam today. He did express that he is a DNR/DNI. We will hold on a CT scan of his chest for now. We decreased his oxygen from 2 L to 1 L and he did desaturate to the low 80s. This improved with oxygen by nasal cannula. He is currently on 2 L by nasal cannula satting in the low 90s. He is not on oxygen at home. Social work has been involved. We discovered that there has not been a hospice consultation placed up to this point. I put the consultation order in. Had a long discussion with the patient's [id number] at bedside and other caretakers. During his time here in the emergency department the patient has become unresponsive. Inform them that I am concerned that he is in the process of dying. We discussed turning off his oxygen and making him comfortable. They would like to hold on doing that for now. He was given a small amount of morphine. Plan will be is to keep the patient here in the emergency department for the time being to see whether not he deteriorates over the next couple hours. We were able to set up hospice to come and evaluate the patient in the morning. I also talked with the hospitalist in case the patient does need admitted to the hospital. Care turned over to Dr. Landers change of shift to continue to observe. <Isabel Landers MD - Last Filed: 05/10/22 04:09> Lab Data Labs: Lab Results 05/09/22 05/09/22 05/09/22 Range/Units 14:05 14:30 14:30 WBC 14.4 H (4.5-11.0) X10^3/uL RBC 6.14 H (4.5-5.9) X10^6/uL Hgb 17.0 (13.5-17.5) g/dL Hct 49.9 (41-53) % MCV 81.3 (80-100) fL MCH 27.6 (26-34) PG MCHC 33.9 (30-36) % RDW 13.6 (11.6-14.8) % Plt Count 285 (150-400) X10^3/uL Neut % (Auto) 91.3 H (50-75) % Lymph % (Auto) 5.3 L (25-40) % Overton % (Auto) 3.1 (3-14) % Eos % (Auto) 0.0 L (2-4) % Baso % (Auto) 0.3 (0-2) % Neut # (Auto) 71584 H (8845-0678) /uL Lymph # (Auto) 800 L (5807-2814) /uL Overton # (Auto) 400 (0-900) /uL Eos # (Auto) 0 (0-450) /uL Baso # (Auto) 0 (0-100) /uL Sodium (137-145) mmol/L Potassium (3.4-5.1) mmol/L Chloride (98-107) mmol/L Carbon Dioxide (22-32) mmol/L BUN (9-20) mg/dL Creatinine (0.66-1.25) mg/dL Estimated GFR (>60) mL/min BUN/Creatinine Ratio (6-22) Glucose (70-100) mg/dL Lactate 1.8 (0.7-2.1) mmol/L Calcium (8.4-10.2) mg/dL Total Creatine Kinase (55-170) U/L CK-MB (CK-2) CK-MB (CK-2) Rel Index Troponin I (0.01-0.034) ng/mL NT-Pro-B Natriuret Pep (<125) pg/mL Procalcitonin (<0.5) ng/mL SARS-CoV-2 (PCR) Negative (Negative) 05/09/22 05/09/22 Range/Units 15:20 15:20 WBC (4.5-11.0) X10^3/uL RBC (4.5-5.9) X10^6/uL Hgb (13.5-17.5) g/dL Hct (41-53) % MCV (80-100) fL MCH (26-34) PG MCHC (30-36) % RDW (11.6-14.8) % Plt Count (150-400) X10^3/uL Neut % (Auto) (50-75) % Lymph % (Auto) (25-40) % Overton % (Auto) (3-14) % Eos % (Auto) (2-4) % Baso % (Auto) (0-2) % Neut # (Auto) (5408-7080) /uL Lymph # (Auto) (5036-7960) /uL Overton # (Auto) (0-900) /uL Eos # (Auto) (0-450) /uL Baso # (Auto) (0-100) /uL Sodium 129 L (137-145) mmol/L Potassium 3.7 (3.4-5.1) mmol/L Chloride 80 L (98-107) mmol/L Carbon Dioxide 35 H (22-32) mmol/L BUN 18 (9-20) mg/dL Creatinine 0.29 L (0.66-1.25) mg/dL Estimated GFR > 60 (>60) mL/min BUN/Creatinine Ratio 62.1 H (6-22) Glucose 289 H (70-100) mg/dL Lactate (0.7-2.1) mmol/L Calcium 9.6 (8.4-10.2) mg/dL Total Creatine Kinase 70 (55-170) U/L CK-MB (CK-2) TNP CK-MB (CK-2) Rel Index TNP Troponin I 0.022 (0.01-0.034) ng/mL NT-Pro-B Natriuret Pep 514 H (<125) pg/mL Procalcitonin 0.07 (<0.5) ng/mL SARS-CoV-2 (PCR) (Negative) MDM Narrative Medical decision making narrative: Initially patient was responsive. He was able to shake his head yes or no but was unable to talk. At baseline he is unable to move his extremities. No easily reversible cause for his shortness of breath was found on the exam today. He did express that he is a DNR/DNI. We will hold on a CT scan of his chest for now. We decreased his oxygen from 2 L to 1 L and he did desaturate to the low 80s. This improved with oxygen by nasal cannula. He is currently on 2 L by nasal cannula satting in the low 90s. He is not on oxygen at home. Social work has been involved. We discovered that there has not been a hospice consultation placed up to this point. I put the consultation order in. Had a long discussion with the patient's [id number] at bedside and other caretakers. During his time here in the emergency department the patient has become unresponsive. Inform them that I am concerned that he is in the process of dying. We discussed turning off his oxygen and making him comfortable. They would like to hold on doing that for now. He was given a small amount of morphine. Plan will be is to keep the patient here in the emergency department for the time being to see whether not he deteriorates over the next couple hours. We were able to set up hospice to come and evaluate the patient in the morning. I also talked with the hospitalist in case the patient does need admitted to the hospital. Care turned over to Dr. Landers change of shift to continue to observe. 720pm care is established. Patient is examined. He had a long and detailed discussion with his friend and power of patent prosecution attorney. The clearly reviewed the stages of and they realized in retrospect that this clearly has been going on for 3-4 weeks and that his acute deterioration today is perhaps not as much of a surprise as they had realized. They are all in agreement that he would like to be comfortable and we want to avoid air hunger and gasping. They would like to have him on a morphine drip titrated to comfort. On exam his systolic blood pressure is 80 he has agonal respirations his heart rate is in the 90 range and he is currently on 2 L of oxygen with completely inadequate work of breathing. He does appear to be actively dying and I suspect that he will sometime this evening and a sure that concern with his friends and family. Given that, we will keep him in the emergency room for the next number of hours while we began a morphine drip titrated for comfort rather than respiratory rate. All questions are answered and family is comfortable with moving forward. time of 11:03 pm Patient quietly and peacefully with friends at the bedside. Eventual cause of is respiratory failure secondary to amyotrophic lateral sclerosis Discharge Plan Departure Patient Disposition: Clinical Impression: ALS (amyotrophic lateral sclerosis), Respiratory failure, chronic neuromuscular Date/Time: 05/09/22 23:03
--- NOTE | 2022-05-09 14:09 | DI.RAD.S_ITS ---
PROCEDURE: XR CHEST 1V INDICATIONS: Short of breath TECHNIQUE: One view of the chest was acquired. COMPARISON: [facility], , CHEST 1 VIEW, 02/03/2013, 0:28. FINDINGS: Surgical changes and devices: Lower cervical spine fixation hardware is partially seen. Lungs and pleura: On this semiupright portable chest examination, no large pneumothorax or large pleural effusions are seen. No focal infiltrates are seen. Low lung volumes are noted. This causes a crowded appearance to the lung markings and limits evaluation. Mediastinum: Mediastinal contours appear normal. Heart size is normal. Bones and chest wall: No suspicious bony lesions. Age-appropriate bony degenerative changes are seen. Overlying soft tissues appear unremarkable. IMPRESSION: Limited portable chest examination, without a significant cardiopulmonary abnormality identified. Postoperative and degenerative changes are seen. Dictated by: Chandra Ackerman M.D. on 05/09/2022 at 14:12 Approved by: Chandra Ackerman M.D. on 05/09/2022 at 14:12
[2022-05-09] MEDS: ALBUTEROL/IPRATROPIUM 3 ML AMPUL INH (14:21)
[2022-05-09 14:44] LABS: Add Manual Diff / Slide Review NO; Basophils Absolute Auto 0 /uL (0-100); Basophils Percent Auto 0.3 % (0-2); Eosinophils Absolute Auto 0 /uL (0-450); Hematocrit 49.9 % (41-53); Lymphocytes Absolute Auto 800 /uL (1100-4500); Lymphocytes Percent Auto 5.3 % (25-40); Mean Corpuscular HGB Conc 33.9 % (30-36); Mean Corpuscular Hemoglobin 27.6 PG (26-34); Mean Corpuscular Volume 81.3 fL (80-100); Monocytes Absolute Auto 400 /uL (0-900); Monocytes Percent Auto 3.1 % (3-14); Neutrophils Absolute Auto 13200 /uL (1500-7000); Neutrophils Percent Auto 91.3 % (50-75); Platelet Count 285 X10^3/uL (150-400); Red Blood Cell Count 6.14 X10^6/uL (4.5-5.9); Red Cell Distribution Width 13.6 % (11.6-14.8); White Blood Cell Count 14.4 X10^3/uL (4.5-11.0)
[2022-05-09 14:56] LABS: Lactate (Lactic Acid) 1.8 mmol/L (0.7-2.1)
[2022-05-09 15:02] LABS: COVID19 -Nasal RAPID Negative (Negative)
[2022-05-09] MEDS: SODIUM CHLORIDE 0.9% 1,000 ML 100 ML IV (15:13)
[2022-05-09 16:22] LABS: NT-proBNP (BNP-Adult 18+) 514 pg/mL (<125)
[2022-05-09 16:28] LABS: BUN Creatinine Ratio 62.1 (6-22); Blood Urea Nitrogen 18 mg/dL (9-20); Calcium 9.6 mg/dL (8.4-10.2); Carbon Dioxide 35 mmol/L (22-32); Chloride 80 mmol/L (98-107); Creatine Kinase 70 U/L (55-170); Estimated Glomerular Filt Rate > 60 mL/min (>60); Glucose 289 mg/dL (70-100); HEMOLYSIS 32 (0-50); Potassium 3.7 mmol/L (3.4-5.1); Sodium 129 mmol/L (137-145)
[2022-05-09 16:40] LABS: Troponin I 0.022 ng/mL (0.01-0.034)
[2022-05-09] MEDS: MORPHINE 4 MG/ML INJ 2 MG IM (16:40)
[2022-05-09 16:45] LABS: Procalcitonin 0.07 ng/mL (<0.5)
--- NOTE | 2022-05-09 17:12 | CM.DPNOTE ---
Addendum entered by Rocio Borjas 05/09/22 19:38: DCP Note continued ED provider Dr. Landers states that she met with patient, friend and DPOA and it is reported that another friend or family member may come to the ED as patient is on comfort measures. Dr. Landers explains that patient is palliative and will likely soon. DPOA agrees to comfort care medication and for patient to be removed from oxygen once all family/friends see patient. FREELANCE PROGRAMMER/APP DEVELOPER calls and updates [facility] that patient may in the ED and requests return call. [facility] returns call and speaks with ED provider Dr. Landers who reports that patient will in the ED. Plan: Patient likely to in ED DAHLIA Sullivan Addendum entered by Rocio Borjas 05/09/22 18:05: DCP Continued Note FREELANCE PROGRAMMER/APP DEVELOPER enters room with ED provider Dr. Waldrop. Present in room is patient, DPOA and patient's friend. Patient presents with labored breathing, eyes closed and is no longer responsive and is unable to communicate. It is reported that patient has not been able to sleep in the last few days due to pain. ED provider endorses that patient is in the process of dying. DPOA and friend endorse concern that patient was talking and much better a few days ago and request that no changes be made at this time for the next few hours. FREELANCE PROGRAMMER/APP DEVELOPER provides [facility] brochure and endorses that [facility] can start intake process as early as tomorrow, DPOA and friend indicate agreement and understanding and state that that patient has hx with [facility] services. Plan: FREELANCE PROGRAMMER/APP DEVELOPER to f/u with [facility] to inquire about time of intake and FREELANCE PROGRAMMER/APP DEVELOPER to f/u with ED provider and patient's DPOA regarding goal of care. DAHLIA Sullivan Original Note: DCP Assessment Note Patient is 56 y/o male who presents to ED via EMS due to concern for SOB. Per EMS, patient's oxygen level was at 70% on room air and EMS provided patient with oxygen. Patient has hx of ALS and has been declining in recent months. Patient's PCP is Dr. Forrest Horne, patient has Medicaid and [employer] insurance. Patient is DNR/DNI and presents to ED with DPOA Mignon Kaur Pla (Ph. # [phone]). Patient is unable to verbally communicate at this time but was able to answer yes and no questions by nodding his head when FREELANCE PROGRAMMER/APP DEVELOPER entered room. Per RN and ED provider Dr. Waldrop, patient became hypoxic and there is concern for patient's need for oxygen. Per patient DPOA and patient, it is there preference to receive Hospice and they reported that hospice referral has been initiated by PCP office. FREELANCE PROGRAMMER/APP DEVELOPER calls PCP office and it was reported that the DPOA contacted PCP office in person today requesting Hospice referral for patient and RN recommended patient be seen at the ED based on patient description. RN Diana states that she has not been able to start the Hospice referral yet. FREELANCE PROGRAMMER/APP DEVELOPER endorses that FREELANCE PROGRAMMER/APP DEVELOPER can start the referral process for Hospice, Diana indicates agreement and understanding. FREELANCE PROGRAMMER/APP DEVELOPER reviews this with DPOA and patient and their preference is to choose a Hospice agency that can see patient the soonest. FREELANCE PROGRAMMER/APP DEVELOPER calls [facility] and it is reported that they can see patient as soon as next Thursday, FREELANCE PROGRAMMER/APP DEVELOPER explains the urgency that patient may prior to then and it is reported that they will try to expedite the process, FREELANCE PROGRAMMER/APP DEVELOPER faxes Hospice orders and clinicals for referral. Hospitalist Dr. Cho is informed about patient by ED provider Dr. Waldrop and Dr. Moreno calls [facility] and is informed that they can accept [facility] patients. FREELANCE PROGRAMMER/APP DEVELOPER calls [facility] and it is reported that they can accept [facility] patients on a case by case basis (Ph. # [phone]), it is reported that they can start intake process for patient as soon as tomorrow. FREELANCE PROGRAMMER/APP DEVELOPER faxes orders and clinicals for referral. FREELANCE PROGRAMMER/APP DEVELOPER calls [facility] and FREELANCE PROGRAMMER/APP DEVELOPER endorses that another agency can see patient sooner and Emilie indicates understanding. Per ED provider, patient's family and friends are planning to come to ED to assess if the preference is for patient. It is reported that patient is to board in ED until tomorrow AM upon Hospice intake appt. Per ED provider, it is also likely that patient may in the ED. Plan: FREELANCE PROGRAMMER/APP DEVELOPER to f/u with [facility] referral to initiated intake appt for patient tomorrow, patient to continue to be cared for in ED until Hospice services can be initiated. Rocio Borjas [facility] Discharge Planning/Care Management CM Discharge Assessment Start: 05/09/22 17:06 Freq: Status: Active Protocol: Document 05/09/22 17:06 LN (Rec: 05/09/22 17:10 LN [id number]) Discharge Planning Assessment Assigned Application Integration Specialist Rocio YARDING AND FOLDING MACHINE OPERATOR DPOA/Assigned Designee Name Friend/ Mignon Kaur Pla Contact Information Ph. # [phone] Advance Directives? Yes Advance Directives on File Yes History Provided By Friend,Medical Record Has Patient been admitted in last 30 No days? Prior Living Arrangements House Household Members friend(s) Type of transporation used prior to Relies on Others admit Independent with ADL's No Is patient alert and oriented? yes, at baseline- patient currently declining Needs Assistance With Bathing,Eating,Grooming,Meal Prep,Toileting,Managing Medications,Home Chores / Shopping Caregiver for Another No Comment Patient to in ED vs. home with [facility] tomorrow [facility] Referrals Initiated Other Additional Comment Hospice referral initiated. Patient and DPOA gave preference for who ever could seen patient the soonest. Please Provide Date Initial DC 05/09/22 Assessment Was Performed
--- NOTE | 2022-05-09 18:36 | PC.NURSE ---
Patient arrived to ED visibly short of breath. Breathing treatment administered and patient appeared to be more comfortable. Oxygen was titrated down to 1L down from 2L. Went back into room and he was again in distress at 81% on 1L. Turned oxygen up to 5L nasal cannula. He appeared to briefly recover, but within 10-15 min patient became somnolent and did not respond to any type of question (before he would nod and shake head). Provider was notified.
--- NOTE | 2022-05-09 19:24 | PC.NURSE ---
Patient was placed in Luo's position, per caregiver this is his position of comfort. Condom cath was placed. Patient's eyes were lubricated and eyelids pushed closed as much as possible. Patient's mouth was cleaned and moisturized. Caregiver and friend at bedside and educated on dying process.
[2022-05-09] MEDS: MORPHINE 2 MG/ML INJ IV (21:55)
[2022-05-09] MEDS: MORPHINE 50 MG in DEXTROSE 5 % IN WATER 45 ML IV (22:25)
--- NOTE | 2022-05-09 23:03 | PC.NURSE ---
Time of called by Dr. Landers at bedside. Family present at bedside.
--- NOTE | 2022-05-10 01:51 | PC.NURSE ---
Hospice notified of demise. Hospice nurse paged regarding bereavement care for friends. Waiting for return call.
--- NOTE | 2022-05-10 05:45 | PC.NURSE ---
left 2nd message with call service for hospice, hospice nurse to call back
== END 2022-05-10 04:32 | disposition expired ==
PROVIDERS: Emergency Medicine; Emergency Provider Emergency Medicine; Family Provider Student in an Organized Health Care Education/Training Program; PCP Student in an Organized Health Care Education/Training Program
DX: G12.21 Amyotrophic lateral sclerosis (principal); J96.10 Chronic respiratory failure, unspecified whether with hypoxia or hypercapnia; Z20.822 Contact with and (suspected) exposure to COVID-19
CPT/HCPCS: 36415; 71045; 80048; 82550; 83605; 83880; 84145; 84484; 85025; 87635; 93005; 94640; 96365; 96372; 96375; 99285; C9803; J2270